=== PATIENT | female | born 1970 | race Caucasian/White ===

== ENCOUNTER 2022-12-30 00:53 | Emergency (ER) | payer BC, MEDICAID ==
[~2022-12-30] VITALS: Ht 157.5 cm; Wt 67.1 kg
[2022-12-30 00:55] VITALS: BP 144/89
--- NOTE | 2022-12-30 00:58 | NUR ---
TO LOBBY A/W BED AMBULATORY
[2022-12-30 01:00] VITALS: BP 144/89
--- NOTE | 2022-12-30 01:30 | NUR ---
SEEN AND EXAMINED BY CHRIS
[2022-12-30 01:58] LABS: BASOPHILS % (AUTO) 0.5 % (0.0-2.0); EOSINOPHILS # (AUTO) 0.1 K/uL (0-0.4); HEMATOCRIT 39.7 % (36-48); HEMOGLOBIN 13.7 g/dL (12.0-16.0); LYMPHOCYTES % (AUTO) 28.2 % (20.5-51.1); MEAN CORPUSCULAR HEMOGLOBIN 30 pg (27-31); MEAN CORPUSCULAR HGB CONC 35 g/dL (33-37); MEAN CORPUSCULAR VOLUME 85.7 fL (80-94); MONOCYTES # (AUTO) 0.5 K/uL (0.8-1.0); MONOCYTES % (AUTO) 6.6 % (1.7-9.3); NEUTROPHILS # (AUTO) 4.5 K/uL (1.8-7.7); NEUTROPHILS % (AUTO) 62.7 % (42.2-75.2); PLATELET COUNT (AUTO) 225 K/uL (140-450); RED BLOOD CELL COUNT(AUTO) 4.63 MIL/uL (4.20-5.40); RED CELL DISTRIBUTION WIDTH 13.7 % (11.6-13.7); WHITE BLOOD COUNT (AUTO) 7.1 K/uL (4.8-10.8)
[2022-12-30] MEDS ORDERED: KETOROLAC 30 MG/ML VIAL IM ONE (02:05)
[2022-12-30 02:11] LABS: ALBUMIN 3.7 g/dL (3.4-5.0); ANION GAP 11.9 (8-16); CARBON DIOXIDE 28.6 mmol/L (21-32); CREATININE 0.6 mg/dL (0.6-1.3); POTASSIUM 3.5 mmol/L (3.5-5.1); TOTAL BILIRUBIN 0.2 mg/dL (0.0-1.0)
[2022-12-30 02:20] LABS: APPEARANCE,URINE CLEAR (CLEAR); BILIRUBIN,URINE NEGATIVE (NEGATIVE); BLOOD, URINE TRACE-I (NEGATIVE); COLOR,URINE YELLOW (YELLOW); LEUKOCYTE ESTERASE ,URINE NEGATIVE (NEGATIVE); NITRITE, URINE NEGATIVE (NEGATIVE); PH,URINE 6.5 (5.0-9.0); UGLUCOSE NEGATIVE (NEGATIVE)
--- NOTE | 2022-12-30 02:30 | NUR ---
MEDICATED PER [facility] ORDER
[2022-12-30 02:31] LABS: RBC,URINE 0-5 /HPF (0-5)
[2022-12-30] MEDS ORDERED: ONDANSETRON 4 MG ODT PO ONE (03:00)
[2022-12-30] MEDS ORDERED: IBUP-2213 PO (05:30)
--- NOTE | 2022-12-30 06:30 | NUR ---
STILL A/W FOR CT RESULTS
--- NOTE | 2022-12-30 09:40 | NUR ---
ATTEMPTED TO DC,PT NOT FOUND IN LOBBY OR PARKING LOT. IBUPROFEN PRESCRIPTION SENT TO [facility]
== END 2022-12-30 09:40 | disposition home or self-care (01) ==
LOC: MED 00:53
DX: R10.11 Right upper quadrant pain (principal); R11.0 Nausea; Z79.899 Other long term (current) drug therapy
CPT/HCPCS: 36415; 74176; 80053; 81001; 81025; 83690; 85025; 96374; 99285; J1885; Q0162